=== PATIENT | female | born 1995 | race Caucasian/White ===

== ENCOUNTER 2017-05-31 04:38 | Emergency (ER) | payer BC, OTHER ==
[2017-05-31] MEDS ORDERED: cefTRIAXone 250 MG Vial IM ONE (05:54)
[2017-05-31] MEDS ORDERED: Azithromycin 500 MG Tab PO ONE (05:54)
[2017-05-31] MEDS ORDERED: metroNIDAZOLE 250 MG Tab PO ONE (05:54)
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
--- NOTE | 2017-06-02 09:39 | ER ---
DATE SEEN: 05/31/2017 HISTORY OF PRESENT ILLNESS: Dr. Gonzalez handed her care off to me and I have written for the following tests. Hepatitis tests performed per up-to-date: hepatitis surface antibody, hepatitis surface antigen, hepatitis core antibody. Also, these were ordered because I am not certain nor was the patient certain if she has had completion of her series of hepatitis B shots. Hepatitis C and a fluorescent treponemal antibody (FTA-ABS test) were ordered. The patient will need to call back for the results of these tests. To summarize, the following tests have been done: hepatitis C, HIV 1/2 test, FTA- ABS for syphilis. The VDRL, and RPR are not as specific and have a false- positive potential, so were not ordered. PLAN: The patient is to start Flagyl, Rocephin, Azithromycin medication today per counselor this week and follow up with her MD this week. If she felt suicidal or feels like she has a tendency to fall back on her self-cutting, she is to see the doctor earlier, come back to the ER, or see her counselor earlier. Dr. Gonzalez has performed all the other clinical tests. The patient does not need human papilloma virus testing as she has been treated with Gardasil series. Hepatitis C and HIV status are being tested. The patient asked if she could use her Klonopin that is old. In terms of the recent KARLI studies, the experts have noted that medications are stable for a long period of time and she can use her Klonopin at home. /[id number] TIMOTEO/MARILYN
== END 2017-05-31 08:55 | disposition home or self-care (01) ==
LOC: FB.ED 04:38
DX: T76.21XA Adult sexual abuse, suspected, initial encounter (principal)
CPT/HCPCS: 36415; 80305; 81001; 81025; 84702; 86704; 86706; 86803; 87340; 87389; 96372; 99285; A9270; G0480; J0696; 99284

== ENCOUNTER 2021-01-31 22:14 | Emergency (ER) | payer MEDICAID, OTHER ==
[2021-01-31] MEDS ORDERED: Metoprolol Tartrate 50 MG Tab PO STA (22:28)
[2021-01-31] MEDS ORDERED: Aspirin 81 MG Tab.Chew PO STA (22:28)
[2021-01-31] MEDS ORDERED: Metoprolol Tartrate 25 MG Tab ONE (22:28)
[2021-01-31] MEDS ORDERED: Metoprolol Tartrate 25 MG Tab PO STA (22:43)
--- NOTE | 2021-01-31 23:22 | EDM.PDOC ---
ED HPI GENERAL MEDICAL PROBLEM - General Chief Complaint: Chest Pain Stated Complaint: CHEST PAIN Time Seen by Provider: 01/31/21 22:45 Source of Information: Reports: Patient History Limitations: Reports: No Limitations - History of Present Illness INITIAL COMMENTS - FREE TEXT/NARRATIVE: Patient presnted to the ED because of chest pain which started 3 days ago. the pain is sharp, over the left ant chest wall, 6/10. she also c/o dyspnea and wheezing in which she is treated with albuterol Inhaler per PMD. She also c/o headache, nausea but no vomiting. Chest Pain Score (Numeric/FACES): 6 - Related Data Allergies Allergy/AdvReac Type Severity Reaction Status Date / Time amoxicillin Allergy Anaphylactic Verified 08/05/19 15:40 Shock cephalexin Allergy Hives Verified 08/05/19 15:40 clindamycin Allergy Hives Verified 08/05/19 15:40 pantoprazole Allergy Nausea Verified 08/05/19 15:40 Penicillins Allergy Anaphylactic Verified 08/05/19 15:40 Shock Sulfa (Sulfonamide Allergy Anaphylactic Verified 08/05/19 15:40 Antibiotics) Shock sulfamethoxazole Allergy Anaphylactic Verified 08/05/19 15:40 [From Bactrim] Shock trimethoprim [From Bactrim] Allergy Anaphylactic Verified 08/05/19 15:40 Shock Home Meds: Home Meds Propranolol HCl 40 mg PO BID 01/31/21 [History] Past Medical History Cardiovascular History: Reports: Other (See Below) Other Cardiovascular History: Tachycardia Gastrointestinal History: Reports: GERD, Irritable Bowel Syndrome 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 GI Surgical History: Reports: Colonoscopy, EGD Musculoskeletal Surgical History: Reports: Other (See Below) Other Musculoskeletal Surgeries/Procedures:: States she has had two hip surgeries. Social & Family History - Family History Family Medical History: No Pertinent Family History - Tobacco Use Tobacco Use Status *Q: Unknown Ever Used Tobacco - Caffeine Use Caffeine Use: Reports: Coffee ED ROS GENERAL - Review of Systems Review Of Systems: See Below Constitutional: Reports: No Symptoms HEENT: Reports: No Symptoms Respiratory: Reports: No Symptoms Cardiovascular: Reports: Chest Pain Endocrine: Reports: No Symptoms GI/Abdominal: Reports: No Symptoms : Reports: No Symptoms Musculoskeletal: Reports: No Symptoms Skin: Reports: No Symptoms Neurological: Reports: No Symptoms Psychiatric: Reports: No Symptoms ED EXAM, GENERAL - Physical Exam Exam: See Below Exam Limited By: No Limitations General Appearance: Alert, No Apparent Distress Ears: Normal External Exam, Normal Canal, Hearing Grossly Normal Nose: Normal Inspection, Normal Mucosa, No Blood Throat/Mouth: Normal Inspection, Normal Lips, Normal Teeth, Normal Gums Head: Atraumatic, Normocephalic Neck: Normal Inspection, Supple, Non-Tender, Full Range of Motion Respiratory/Chest: No Respiratory Distress, Lungs Clear, Normal Breath Sounds, No Accessory Muscle Use, Chest Non-Tender Cardiovascular: Normal Peripheral Pulses, Regular Rate, Rhythm, No Edema, No Gallop, No JVD, No Murmur, No Rub GI/Abdominal: Normal Bowel Sounds, Soft, Non-Tender, No Organomegaly, No Distention, No Abnormal Bruit, No Mass Back Exam: Normal Inspection, Full Range of Motion Extremities: Normal Inspection, Normal Range of Motion, Non-Tender #1 Interpretation EKG Date: 01/31/21 Time: 22:29 Rhythm: Other (sinus tach) Rate (Beats/Min): 101 [place]: LAD-Left [place] Deviation P-Wave: Present QRS: Normal ST-T: Normal QT: Normal Comparison: NA - No Prior EKG EKG Interpretation Comments: Sinus Tach Course - Vital Signs Text/Narrative:: Lab/EKG result was reviewed and discussed with patient ASA 324 mg PO x1 Tramadol 50 mg PO x1 Metoprolol tartrate 50 mg PO x1 Last Recorded V/S: Last Vital Signs Temp Pulse 100 01/31/21 23:30 Resp 20 01/31/21 23:30 BP 130/90 01/31/21 23:30 Pulse Ox 95 01/31/21 23:30 - Orders/Labs/Meds Orders: Active Orders 24 hr Category Date Time Status EKG 12 Lead [EK] Routine Ther 01/31/21 22:27 Ordered Labs: Laboratory Tests 01/31/21 01/31/21 01/31/21 Range/Units 22:40 22:40 22:40 WBC 11.2 H (3.0-10.3) x10-3/uL RBC 5.28 H (3.60-5.20) x10(6)uL Hgb 15.5 (11.4-15.5) g/dL Hct 46.5 (34.2-48.2) % MCV 88.0 (76.7-100.5) fL MCH 29.3 (23.9-33.9) pg MCHC 33.3 (31.9-34.8) g/dL RDW 13.2 (12.3-16.5) % Plt Count 248 (151-488) x10(3)uL MPV 8.2 (7.1-12.4) fL Neut % (Auto) 64.2 (30.8-76.2) % Lymph % (Auto) 29.1 (18.4-52.1) % [place] % (Auto) 4.6 (4.4-15.7) % Eos % (Auto) 1.6 (0.6-8.1) % Baso % (Auto) 0.5 (0.2-1.5) % Neut # (Auto) 7.2 H (1.5-6.3) x10-3/uL Lymph # (Auto) 3.3 (1.0-4.4) x10-3/uL [place] # (Auto) 0.5 (0.3-1.0) x10-3/uL Eos # (Auto) 0.2 (0.0-0.8) x10-3/uL Baso # (Auto) 0.1 (0.0-0.1) x10-3/uL D-Dimer, Quantitative (0.0-0.59) mg/LFEU Sodium 142 (135-145) mmol/L Potassium 3.9 (3.5-5.3) mmol/L Chloride 105 (100-110) mmol/L Carbon Dioxide 25 (21-32) mmol/L BUN 12 (7-18) mg/dL Creatinine 0.9 (0.55-1.02) mg/dL Est Cr Clr Drug Dosing 95.55 mL/min Estimated GFR (MDRD) > 60 (>60) BUN/Creatinine Ratio 13.3 (9-20) Glucose 102 (80-116) mg/dL Calcium 9.5 (8.6-10.2) mg/dL Total Bilirubin 0.6 (0.1-1.3) mg/dL AST 44 H (5-25) IU/L ALT 88 H (12-36) U/L Alkaline Phosphatase 104 (56-112) IU/L Troponin I 6.4 (4.0-60.3) pg/mL Total Protein 7.8 (6.0-8.0) g/dL Albumin 3.6 (3.5-5.2) g/dL Globulin 4.2 g/dL Albumin/Globulin Ratio 0.9 01/31/21 Range/Units 22:55 WBC (3.0-10.3) x10-3/uL RBC (3.60-5.20) x10(6)uL Hgb (11.4-15.5) g/dL Hct (34.2-48.2) % MCV (76.7-100.5) fL MCH (23.9-33.9) pg MCHC (31.9-34.8) g/dL RDW (12.3-16.5) % Plt Count (151-488) x10(3)uL MPV (7.1-12.4) fL Neut % (Auto) (30.8-76.2) % Lymph % (Auto) (18.4-52.1) % [place] % (Auto) (4.4-15.7) % Eos % (Auto) (0.6-8.1) % Baso % (Auto) (0.2-1.5) % Neut # (Auto) (1.5-6.3) x10-3/uL Lymph # (Auto) (1.0-4.4) x10-3/uL [place] # (Auto) (0.3-1.0) x10-3/uL Eos # (Auto) (0.0-0.8) x10-3/uL Baso # (Auto) (0.0-0.1) x10-3/uL D-Dimer, Quantitative 0.54 (0.0-0.59) mg/LFEU Sodium (135-145) mmol/L Potassium (3.5-5.3) mmol/L Chloride (100-110) mmol/L Carbon Dioxide (21-32) mmol/L BUN (7-18) mg/dL Creatinine (0.55-1.02) mg/dL Est Cr Clr Drug Dosing mL/min Estimated GFR (MDRD) (>60) BUN/Creatinine Ratio (9-20) Glucose (80-116) mg/dL Calcium (8.6-10.2) mg/dL Total Bilirubin (0.1-1.3) mg/dL AST (5-25) IU/L ALT (12-36) U/L Alkaline Phosphatase (56-112) IU/L Troponin I (4.0-60.3) pg/mL Total Protein (6.0-8.0) g/dL Albumin (3.5-5.2) g/dL Globulin g/dL Albumin/Globulin Ratio Meds: Medications Discontinued Medications Generic Name Dose Route Start Last Admin Trade Name Freq PRN Reason Stop Dose Admin Aspirin 324 mg 01/31/21 22:28 01/31/21 22:41 Aspirin 81 Mg Tab.Chew PO 01/31/21 22:29 324 mg NOW STA Administration Metoprolol Tartrate 50 mg 01/31/21 22:28 01/31/21 22:49 Metoprolol Tartrate 50 Mg Tab PO 01/31/21 22:29 Not Given NOW STA Metoprolol Tartrate Confirm 01/31/21 22:28 01/31/21 22:41 Metoprolol Tartrate 25 Mg Tab Administered 01/31/21 22:29 Not Given Dose 50 mg .ROUTE .STK-MED ONE Metoprolol Tartrate 50 mg 01/31/21 22:43 01/31/21 22:49 Metoprolol Tartrate 25 Mg Tab PO 01/31/21 22:44 50 mg NOW STA Administration Tramadol HCl 50 mg 01/31/21 23:34 01/31/21 23:43 Tramadol 50 Mg Tab PO 01/31/21 23:35 50 mg NOW STA Administration Departure - Departure Time of Disposition: 23:30 Disposition: Home, Self-Care 01 Condition: Good Clinical Impression: Chest pain, Sinus tachycardia Instructions: Sinus Tachycardia, Nonspecific Chest Pain, Adult, [id number] Referrals: PCP,None [Primary Care Provider] - Forms: ED Department Discharge Additional Instructions: Please read discharge instructions on chest pain and tachicardia Continue your propranolol Follow up with your doctor if your tachycardia persist Sepsis Event Note (ED) - Evaluation Sepsis Screening Result: No Definite Risk - My Orders Last 24 Hours: My Active Orders 01/31/21 22:27 EKG 12 Lead [EK] Routine - Assessment/Plan Last 24 Hours: My Active Orders 01/31/21 22:27 EKG 12 Lead [EK] Routine
[2021-01-31] MEDS ORDERED: traMADol 50 MG Tab PO STA (23:34)
== END 2021-01-31 23:47 | disposition home or self-care (01) ==
LOC: FB.ED 22:14
DX: R07.89 Other chest pain (principal); R00.0 Tachycardia, unspecified; Z88.0 Allergy status to penicillin; Z88.1 Allergy status to other antibiotic agents; Z88.2 Allergy status to sulfonamides
CPT/HCPCS: 36415; 80053; 84484; 85025; 85379; 93005; 93010; 99283; 99285-25; A9270-GY

== ENCOUNTER 2021-03-29 00:01 | Emergency (ER) | payer MEDICAID ==
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
== END 2021-03-29 00:35 | disposition home or self-care (01) ==
LOC: FB.ED 00:01
DX: F41.9 Anxiety disorder, unspecified (principal); E66.9 Obesity, unspecified; Z68.44 Body mass index [BMI] 60.0-69.9, adult; Z88.0 Allergy status to penicillin; Z88.1 Allergy status to other antibiotic agents; Z88.8 Allergy status to other drugs, medicaments and biological substances; Z88.2 Allergy status to sulfonamides
CPT/HCPCS: 99284

== ENCOUNTER 2021-11-19 14:15 | Emergency (ER) | payer MEDICAID ==
[2021-11-19] MEDS ORDERED: Albuterol/Ipratropium 3.0-0.5 MG/3 ML Neb Soln NEB ONE (14:35)
[2021-11-19 14:55] LABS: BASE EXCESS VENOUS,POC 5 mmol/L (-2 - 3+); PCO2 VENOUS,POC 29 mmHg (41-51); PH VENOUS,POC 7.56 pH Units (7.32-7.43)
== END 2021-11-19 16:10 | disposition home or self-care (01) ==
LOC: FB.ED 14:15
DX: R06.00 Dyspnea, unspecified (principal); E66.9 Obesity, unspecified; Z68.43 Body mass index [BMI] 50.0-59.9, adult; Z88.0 Allergy status to penicillin; Z88.1 Allergy status to other antibiotic agents; Z88.2 Allergy status to sulfonamides
CPT/HCPCS: 36415; 71045; 80053; 83880; 84484; 85025; 85379; 85610; 85730; 93005; 93010; 94640; 99282; 99285-25; J7620

== ENCOUNTER 2022-10-14 12:41 | Emergency (ER) | payer MEDICAID ==
[2022-10-14] MEDS ORDERED: Aspirin 81 MG Tab.Chew PO STA (13:11)
[2022-10-14 13:15] LABS: ESTIMATED GFR 121 mL/min (>60)
[2022-10-14] MEDS ORDERED: Acetaminophen/oxyCODONE 325-5 MG Tab PO STA (13:21)
[2022-10-14] MEDS ORDERED: Ondansetron 4 MG Tab.DIS PO STA (13:21)
== END 2022-10-14 14:05 | disposition home or self-care (01) ==
LOC: FB.ED 12:41
DX: G90.A Postural orthostatic tachycardia syndrome [POTS] (principal); I10 Essential (primary) hypertension; K21.9 Gastro-esophageal reflux disease without esophagitis; E66.01 Morbid (severe) obesity due to excess calories; Z88.0 Allergy status to penicillin; Z88.1 Allergy status to other antibiotic agents; Z88.2 Allergy status to sulfonamides; Z88.8 Allergy status to other drugs, medicaments and biological substances; Z79.899 Other long term (current) drug therapy; Z86.16 Personal history of COVID-19; Z68.43 Body mass index [BMI] 50.0-59.9, adult
CPT/HCPCS: 36415; 71045; 80053; 84484; 85025; 85379; 85610; 85730; 93005; 99285; A9270-GY; Q0162

== ENCOUNTER 2023-06-12 02:09 | Emergency (ER) | payer BC, MEDICAID ==
[2023-06-12] MEDS ORDERED: Sodium Chloride 0.9% 1,000 ML IV ONE ×2 (02:33→04:22)
[2023-06-12 02:41] LABS: BASOPHILS ABSOLUTE AUTO 0.1 x10-3/uL (0.0-0.1); BASOPHILS PERCENT AUTO 1.2 % (0.2-1.5); EOSINOPHILS ABSOLUTE AUTO 0.1 x10-3/uL (0.0-0.8); HEMOGLOBIN 14.8 g/dL (11.4-15.5); LYMPHOCYTES ABSOLUTE AUTO 2.6 x10-3/uL (1.0-4.4); LYMPHOCYTES PERCENT AUTO 31.9 % (18.4-52.1); MEAN CORPUSCULAR HEMOGLOBIN 32.7 pg (23.9-33.9); MEAN CORPUSCULAR HGB CONC 35.1 g/dL (31.9-34.8); MEAN CORPUSCULAR VOLUME 93.1 fL (76.7-100.5); MEAN PLATELET VOLUME 7.8 fL (7.1-12.4); MONOCYTES ABSOLUTE AUTO 0.4 x10-3/uL (0.3-1.0); MONOCYTES PERCENT AUTO 4.9 % (4.4-15.7); PLATELET COUNT,PLT 185 x10(3)uL (151-488); RED BLOOD CELL COUNT 4.52 x10(6)uL (3.60-5.20); RED CELL DISTRIBUTION WIDTH 13.3 % (12.3-16.5); WHITE BLOOD CELL COUNT,WBC 8.2 x10-3/uL (3.0-10.3)
[2023-06-12 02:53] LABS: BLOOD UREA NITROGEN,BUN 6 mg/dL (7-18); CALCIUM 9.6 mg/dL (8.6-10.2); CARBON DIOXIDE,CO2 21 mmol/L (21-32); CHLORIDE,CL 105 mmol/L (100-110); CREATININE 0.5 mg/dL (0.55-1.02); ESTIMATED GFR 130 mL/min (>60); GLUCOSE RANDOM 113 mg/dL (80-116); POTASSIUM,K 3.2 mmol/L (3.5-5.3); SODIUM,NA 141 mmol/L (135-145)
[2023-06-12 02:57] LABS: BASE EXCESS VENOUS,POC 2 mmol/L (-2 - 3+); PCO2 VENOUS,POC 19 mmHg (41-51); PH VENOUS,POC 7.63 pH Units (7.32-7.43)
[2023-06-12 03:01] LABS: TROPONIN I 6.4 pg/mL (4.0-60.3)
[2023-06-12] MEDS ORDERED: LORazepam 2 MG/ML SDV ONE (03:02)
[2023-06-12] MEDS ORDERED: LORazepam 2 MG/ML SDV IVPUSH ONE (03:03)
[2023-06-12 03:04] LABS: A/G RATIO 0.9; ALBUMIN 3.4 g/dL (3.5-5.2); ALKALINE PHOSPHATASE 101 IU/L (56-112); BILIRUBIN TOTAL 0.6 mg/dL (0.1-1.3); C-REACTIVE PROTEIN 2.74 mg/dL (<0.33); ETHANOL BLOOD MEDICAL 0.15 % (<0.03); MAGNESIUM 1.8 mg/dL (1.8-2.5); PROTEIN TOTAL,TP 7.3 g/dL (6.0-8.0)
[2023-06-12] MEDS ORDERED: Haloperidol Lactate 5 MG/ML SDV IVPUSH ONE (03:04)
[2023-06-12 03:05] LABS: ALANINE AMINOTRANSFERASE,ALT 329 U/L (12-36)
[2023-06-12 03:06] LABS: ASPARTATE AMNIOTRANSFERASE,AST 294 IU/L (5-25)
[2023-06-12 03:12] LABS: BILIRUBIN,URINE NEGATIVE (NEGATIVE); GLUCOSE,URINE NORMAL (NORMAL); KETONES,URINE 15 mg/dL (NEGATIVE); LEUKOCYTE ESTERASE,URINE MODERATE (NEGATIVE); NITRITE,URINE NEGATIVE (NEGATIVE); OCCULT BLOOD,URINE MODERATE (NEGATIVE); PROTEIN,URINE NEGATIVE (NEGATIVE); UROBILINOGEN,URINE NORMAL (NEGATIVE)
[2023-06-12 03:13] LABS: APPEARANCE,URINE CLEAR (CLEAR); BACTERIA,URINE FEW (NS); COLOR,URINE YELLOW (YELLOW); RBC,URINE 0-5 (0-5); SQUAMOUS EPITHELIAL CELLS,UR FEW (NS,R,O); WBC,URINE 0-5 (0-5)
[2023-06-12 03:14] LABS: AMPHETAMINES SCREEN, URINE NEGATIVE (NEGATIVE); BARBITURATE SCREEN,URINE NEGATIVE (NEGATIVE); BENZODIAZEPINES SCREEN,URINE NEGATIVE (NEGATIVE); BUPRENORPHINE SCREEN,URINE NEGATIVE (NEGATIVE); METHADONE SCREEN, URINE NEGATIVE (NEGATIVE); METHAMPHETAMINE SCREEN, URINE NEGATIVE (NEGATIVE); OXYCODONE SCREEN,URINE NEGATIVE (NEGATIVE); THC SCREEN,URINE NEGATIVE (NEGATIVE)
[2023-06-12] MEDS: Iopamidol 755 Mg/ML 100 ML Bottle IV SCH ×2 (03:57→04:20)
[2023-06-12 04:22] LABS: SALICYLATE 1.2 mg/dL (<2.8)
[2023-06-12 04:23] LABS: ACETAMINOPHEN < 2 ug/mL (<2)
[2023-06-12 04:28] LABS: INR 0.97 (1.00-1.24); PTT,PARTIAL THROMBOPLSTIN TIME 25.1 SECONDS (24.4-33.2)
[2023-06-12] MEDS ORDERED: Iopamidol 755 Mg/ML 100 ML Bottle IV SCH (04:30)
[2023-06-12 04:35] LABS: INFLUENZA A NAA NEGATIVE (NEGATIVE); INFLUENZA B NAA NEGATIVE (NEGATIVE); RESPIRATORY SYNCYTIAL VIR NAA NEGATIVE (NEGATIVE)
[2023-06-12 04:36] LABS: CORONAVIRUS COVID-19 NAA NEGATIVE (NEGATIVE)
[2023-06-12] MEDS ORDERED: Potassium Chloride 20 MEQ Tab.ER PO ONE ×2 (04:58→06:27)
[2023-06-12 05:48] LABS: BASE EXCESS VENOUS,POC -1 mmol/L (-2 - 3+); PCO2 VENOUS,POC 35 mmHg (41-51); PH VENOUS,POC 7.42 pH Units (7.32-7.43)
== END 2023-06-12 07:15 | disposition home or self-care (01) ==
LOC: FB.ED 02:09
DX: F41.9 Anxiety disorder, unspecified (principal); J18.9 Pneumonia, unspecified organism; E87.6 Hypokalemia; E87.20 Acidosis, unspecified; F10.929 Alcohol use, unspecified with intoxication, unspecified; R40.4 Transient alteration of awareness; I10 Essential (primary) hypertension; K21.9 Gastro-esophageal reflux disease without esophagitis; E66.9 Obesity, unspecified; Z68.43 Body mass index [BMI] 50.0-59.9, adult; Z86.16 Personal history of COVID-19; Z88.0 Allergy status to penicillin; Z88.1 Allergy status to other antibiotic agents; Z88.8 Allergy status to other drugs, medicaments and biological substances; Z88.2 Allergy status to sulfonamides; Z79.899 Other long term (current) drug therapy
CPT/HCPCS: 0241U; 36415; 51702; 70450; 71045; 71275; 72125; 74177; 80053; 80143; 80179; 80307; 81001; 81025; 82947; 83605; 83735; 84132; 84484; 85025; 85610; 85730; 86140; 93005; 96361; 96374; 96375; 99291-25; A9270-GY; J1630; J2060; J7030; Q9967

== ENCOUNTER 2024-01-02 16:04 | Emergency (ER) | payer OTHER, MEDICAID ==
[2024-01-02 17:30] LABS: BASOPHILS ABSOLUTE AUTO 0.1 x10-3/uL (0.0-0.1); BASOPHILS PERCENT AUTO 0.8 % (0.2-1.5); EOSINOPHILS ABSOLUTE AUTO 0.1 x10-3/uL (0.0-0.8); EOSINOPHILS PERCENT AUTO 1.1 % (0.6-8.1); HEMATOCRIT 42.8 % (34.2-48.2); HEMOGLOBIN 14.8 g/dL (11.4-15.5); LYMPHOCYTES ABSOLUTE AUTO 2.6 x10-3/uL (1.0-4.4); LYMPHOCYTES PERCENT AUTO 27.7 % (18.4-52.1); MEAN CORPUSCULAR HEMOGLOBIN 32.2 pg (23.9-33.9); MEAN CORPUSCULAR HGB CONC 34.5 g/dL (31.9-34.8); MEAN CORPUSCULAR VOLUME 93.2 fL (76.7-100.5); MEAN PLATELET VOLUME 8.1 fL (7.1-12.4); MONOCYTES ABSOLUTE AUTO 0.4 x10-3/uL (0.3-1.0); NEUTROPHILS ABSOLUTE AUTO 6.2 x10-3/uL (1.5-6.3); NEUTROPHILS PERCENT AUTO 66.4 % (30.8-76.2); PLATELET COUNT,PLT 195 x10(3)uL (151-488); RED BLOOD CELL COUNT 4.59 x10(6)uL (3.60-5.20); RED CELL DISTRIBUTION WIDTH 13.2 % (12.3-16.5); WHITE BLOOD CELL COUNT,WBC 9.3 x10-3/uL (3.0-10.3)
[2024-01-02 17:46] LABS: A/G RATIO 0.9; ALBUMIN 3.3 g/dL (3.5-5.2); ALKALINE PHOSPHATASE 98 IU/L (56-112); ASPARTATE AMNIOTRANSFERASE,AST 145 IU/L (5-25); BILIRUBIN TOTAL 1.1 mg/dL (0.1-1.3); BLOOD UREA NITROGEN,BUN 6 mg/dL (7-18); CALCIUM 8.8 mg/dL (8.6-10.2); CREATININE 0.6 mg/dL (0.55-1.02); EST CRCL DRUG DOSING (CG) 139.56 mL/min; ESTIMATED GFR 125 mL/min (>60); GLUCOSE RANDOM 93 mg/dL (80-116); PROTEIN TOTAL,TP 7.2 g/dL (6.0-8.0)
[2024-01-02 18:00] LABS: CHLORIDE,CL 103 mmol/L (100-110); POTASSIUM,K 3.8 mmol/L (3.5-5.3); SODIUM,NA 140 mmol/L (135-145)
[2024-01-02 18:01] LABS: CARBON DIOXIDE,CO2 26 mmol/L (21-32)
[2024-01-02 18:04] LABS: ALANINE AMINOTRANSFERASE,ALT 191 U/L (12-36)
[2024-01-02] MEDS: Sodium Chloride 0.9% 1,000 ML IV ONE (18:24)
[2024-01-02] MEDS: Ketorolac 30 MG/ML SDV IVPUSH ONE (18:25)
[2024-01-02 19:27] LABS: BILIRUBIN,URINE SMALL (NEGATIVE); GLUCOSE,URINE NORMAL (NORMAL); KETONES,URINE 15 mg/dL (NEGATIVE); LEUKOCYTE ESTERASE,URINE MODERATE (NEGATIVE); NITRITE,URINE POSITIVE (NEGATIVE); OCCULT BLOOD,URINE LARGE (NEGATIVE); PROTEIN,URINE 100 mg/dL (NEGATIVE); UROBILINOGEN,URINE 1 mg/dL (NEGATIVE)
[2024-01-02 19:36] LABS: APPEARANCE,URINE CLOUDY (CLEAR); BACTERIA,URINE RARE (NS); COLOR,URINE RED (YELLOW); RBC,URINE SEMI-PACKED (0-5); SQUAMOUS EPITHELIAL CELLS,UR OCCASIONAL (NS,R,O)
== END 2024-01-02 20:25 | disposition home or self-care (01) ==
LOC: FB.ED 16:04
DX: N39.0 Urinary tract infection, site not specified (principal); I10 Essential (primary) hypertension; K21.9 Gastro-esophageal reflux disease without esophagitis; Z88.1 Allergy status to other antibiotic agents; Z88.8 Allergy status to other drugs, medicaments and biological substances; Z88.2 Allergy status to sulfonamides; Z88.0 Allergy status to penicillin; Z79.899 Other long term (current) drug therapy; Z86.16 Personal history of COVID-19
CPT/HCPCS: 36415; 80053; 81001; 81025; 85025; 96374; 99284; J1885; J7030